=== PATIENT | female | born 1960 | race Caucasian/White ===

== ENCOUNTER 2018-04-09 17:04 | Emergency (ER) | payer OTHER ==
[2018-04-09 17:45] VITALS: BP 121/63
--- NOTE | 2018-04-09 17:51 | UC ---
Minor Trauma HPI - HPI Summary HPI Summary: injured right ribs 6 days ago has continued pain--hurts to cough - History of Current Complaint Chief Complaint: UCUpperExtremity Stated Complaint: RIGHT SIDE PAIN Time Seen by Provider: 04/09/18 17:39 Hx Obtained From: Patient ?: No Onset/Duration: Sudden Onset, Lasting Days - 6 Onset Of Pain: Immediate Pain Intensity: 4 Pain Scale Used: 0-10 Numeric Mechanism Of Injury: Direct Blow Aggravating Factor(s): Coughing, Deep Breaths, Movement Alleviating Factor(s): Nothing - Allergies/Home Medications Allergies/Adverse Reactions: Allergies Allergy/AdvReac Type Severity Reaction Status Date / Time No Known Allergies Allergy Verified 12/03/14 14:02 Home Medications: Home Medications Estradiol PATCH 0.075/DAY* [Climara PATCH 0.075 MG/DAY*] 1 patch TOPICAL WEEKLY 04/09/18 [History Confirmed 04/09/18] methylPREDNISolone ACETATE 80* [Depo-Medrol 80 MG/1ML VIAL*] 160 mg INJ MONTHLY 04/09/18 [History Confirmed 04/09/18] PMH/Surg Hx/FS Hx/Imm Hx Previously Healthy: No - Lupus - Surgical History Surgical History: Yes Surgery Procedure, Year, and Place: Hysterectomy, right shoulder surgery. - Family History Known Family History: Positive: None - Social History Occupation: Employed Full-time Lives: With Family Alcohol Use: Rare Substance Use Type: None Smoking Status (MU): Former Smoker When Did the Patient Quit Smoking/Using Tobacco: Pt stopped 15 yrs ago Review of Systems Constitutional: Negative Skin: Negative Eyes: Negative ENT: Negative Respiratory: Negative Cardiovascular: Negative Gastrointestinal: Negative Genitourinary: Negative Motor: Negative Neurovascular: Negative Musculoskeletal: Arthralgia - right rib -mid /anterior axillary line Neurological: Negative Psychological: Negative Is Patient Immunocompromised?: No All Other Systems Reviewed And Are Negative: Yes Physical Exam Triage Information Reviewed: Yes Appearance: Pain Distress - mild Vital Signs: Initial Vital Signs Temp 98.9 F 04/09/18 17:32 Pulse 56 04/09/18 17:32 Resp 14 04/09/18 17:32 BP 121/63 04/09/18 17:32 Pulse Ox 100 04/09/18 17:32 Vital Signs Reviewed: No Eye Exam: Normal Eyes: Positive: Conjunctiva Clear ENT Exam: Normal ENT: Positive: Normal ENT inspection, Hearing grossly normal. Negative: Nasal congestion, Trismus, Muffled voice, Hoarse voice Dental Exam: Normal Neck exam: Normal Neck: Positive: Supple, Nontender Respiratory Exam: Normal Respiratory: Positive: Lungs clear, Normal breath sounds, No respiratory distress, No accessory muscle use, Other: - right midaxillary anterior axillary Cardiovascular Exam: Normal Cardiovascular: Positive: RRR, No Murmur, Pulses Normal, Brisk Capillary Refill Musculoskeletal Exam: Normal Musculoskeletal: Positive: Strength Intact, ROM Intact, No Edema Neurological Exam: Normal Neurological: Positive: Alert, Muscle Tone Normal Psychological Exam: Normal Skin Exam: Normal Diagnostics - Radiology No standard instances Radiology Interpretation Completed By: Radiologist - Patient Name: RENETTA GUZMAN Medical Record#: [id number] Ordering Physician: Cheri Felton NP Acct.#: [id number] : 1960 Age: 58 Sex: F Location: [facility] Exam Date: 04/09/181749 ADM Status: REG ER Order Information: RIBS RT UNI W/PA CH MIN 3 VWS Accession Number: [id number] CPT: 14444 INDICATION: Right rib injury. COMPARISON: There are no prior studies available for comparison. TECHNIQUE: 3 views of the right ribs and dual-energy PA views of the chest were obtained. FINDINGS: No fracture or significant focal osseous abnormality is seen. The heart is within normal limits in size. The lungs are clear. There is no evidence for pneumothorax or pleural effusion. IMPRESSION: NO EVIDENCE FOR FRACTURE. <Electronically signed by Rainer Gotti MD in OV> 04/09/181827 Dictated By: Rainer Gotti MD Dictated Date/Time: 04/09/181827 Transcribed Date/Time: 04/09/181825 Copy to: CC:Cheri Felton NP; Judah Castro MD; [place] MD Imaging - [facility] Imaging [facility] [address] [address] ph [phone]) ph ([phone]) ph ([phone]) 1 of 1 Minor Trauma Course/Dx - Course Course Of Treatment: tessalon and Robitussin with codiene for cough, tylenol/ ibuprofen for pain, rib splinting and Ice prn, follow with pcp - Differential Dx/Diagnosis Provider Diagnoses: rib contusion Discharge - Sign-Out/Discharge Documenting (check all that apply): Discharge/Admit/Transfer - Discharge Plan Condition: Stable Disposition: HOME Prescriptions: Benzonatate CAP* [Tessalon 100 MG CAP*] 100 mg PO TID PRN #30 cap PRN Reason: cough guaiFENesin/CODIEN 100MG-10MG* [Robitussin AC 100Mg-10Mg*] 10 ml PO Q4H PRN # 120 ml MDD 40 PRN Reason: cough Patient Education Materials: Ibuprofen (By mouth), Ice Pack Application (ED), Rib Contusion (ED) Referrals: Matthew URIBE,Judah Ramires [Primary Care Provider] - If Needed - Billing Disposition and Condition Condition: STABLE Disposition: Home
--- NOTE | 2018-04-09 18:32 | RAD ---
INDICATION: Right rib injury. COMPARISON: There are no prior studies available for comparison. TECHNIQUE: 3 views of the right ribs and dual-energy PA views of the chest were obtained. FINDINGS: No fracture or significant focal osseous abnormality is seen. The heart is within normal limits in size. The lungs are clear. There is no evidence for pneumothorax or pleural effusion. IMPRESSION: NO EVIDENCE FOR FRACTURE.
== END 2018-04-09 18:56 | disposition home or self-care (01) ==
LOC: UCCORT 17:04
DX: S20.20XA Contusion of thorax, unspecified, initial encounter (principal); X58.XXXA Exposure to other specified factors, initial encounter; Y93.9 Activity, unspecified; Y92.9 Unspecified place or not applicable; Z87.891 Personal history of nicotine dependence
CPT/HCPCS: 99202; G0463

== ENCOUNTER 2019-03-08 18:20 | Emergency (ER) | payer OTHER ==
--- OUTSIDE RECORDS SUMMARY | 2019-03-08 18:35 | XMS REPORT | Continuity of Care Document ---
:1960 External Reference #:[id number] Author Name Judah Castro MD Address [address] [place] [address] [place] [address] Care Team Providers Name Role Phone Judah Castro MD Care Team Information [employer] Unavailable Payers Date Identification Numbers Payment Provider Subscriber Policy Number: [id number] [facility] [employer] Number: [id number] [address] PayID: [id number] [place] [address] Advance Directives Description No Information Available Problems Active Problems Provider Date Rheumatoid arthritis of multiple joints Judah Castro MD Onset: 12/19/2015 Rheumatoid arthritis Judah Castro MD Onset: 02/08/2014 Systemic lupus erythematosus Judah Castro MD Onset: 05/11/2013 Family History Date Family Member(s) Observation Comments General Diabetes, Adult General Cancer, Breast General Alcoholism General Dementia General CAD General SC General Hypertension General Stroke General Thyroid Disease Father 82 Father Diabetes, Adult Father SC Father CAD Father Hypertension Father Dementia : (age 71 Years) Mother due to Alcoholism Mother Cancer, Breast Mother Thyroid Disease Children 3 First Brother 45 First Brother Alcoholism First Sister 51 First Sister Alcoholism Second Sister 43 Second Sister Unremarkable Social History Type Date Description Comments Sex Unknown Marital Status Lives With Spouse Diet Healthy, Well Balanced Sleep Reports normal sleep activity Occupation Currently Working Hand Dominance RIGHT-handed ETOH Use Occasionally consumes wine Tobacco Use Start: Unknown End: Patient is a former smoker Unknown Exercise Type/Frequency Exercises sporadically Sun Exposure minimum amount of sun exposure Sun Exposure Uses sunscreen Seat Belt/Car Seat always uses seat belt Allergies, Adverse Reactions, Alerts Description No Known Drug Allergies Medications Active Medications SIG Qnty Indications Ordering Provider Date Famotidine take one tablet 60tabs R10.11 Judah Castro MD 02/01/2019 20mg Tablets by mouth twice a day Transderm-Scop (1.5 one behind ear 4Judah Carroll MD 01/05/2019 MG) q72 hours as 1mg/3Days Patches needed 72HR Folic Acid 1 po qd 90tabs M06.9 Unknown 1mg Tablets Azathioprine 1 by mouth Every Unknown 50mg Tablets Day Methotrexate 8 once a week. Unknown 2.5mg Tablets History Medications Ciprofloxacin HCL 1 by mouth 14tabs Judah Castro, 02/02/2019 - 500mg Tablets twice a day 02/09/2019 Scopolamine Trans[facility]mal [facility], 01/05/2019 - 1.5mg ear 4h before 01/05/2019 Patch motion then q3days as needed Scopolamine use one patch 4unJudah Andrews, 01/05/2019 - 1mg/3Days Patches as directed 01/05/2019 72HR every 3 days Amoxicillin/Clavulanate 1 by mouth 20tabs J01.00 Judah Castro, 2017 - Potassium twice a day 11/05/2018 875-125mg Tablets with food Amoxicillin/Clavulanate 1 tab twice a 20tabs J01.00 Judah Castro, 2017 - Potassium day for 10 days 02/26/2018 875-125mg Tablets Cephalexin 1 tab twice a 14tabs N39.0 Judah Castro, 07/24/2016 - 500mg Tablets day x 7 days 07/31/2016 Metoprolol Succinate ER 1 by mouth Britta Pemberton MD 09/25/2015 - 25mg every day 12/26/2015 Tablets ER 24HR 09/25/15 Start 1/2 qd Azithromycin 2 by mouth 6tabs J01.90 Judah Castro, 09/13/2015 - 250mg Tablets today, then 1qd 09/18/2015 for 4 more days Benzonatate 1-2 tabs three 30caps 461.0 Judah Castro, 11/03/2014 - 100mg Capsules times a day as 11/13/2014 needed cough Ceftin 1 tab twice a 20tabs 461.0 Judah Castro, 11/03/2014 - 500mg Tablets day for 10 days OK 11/13/2014 Valacyclovir HCL 1 by mouth tidx 15tabs 053.9 Judah Castro, 05/11/2013 - 500mg Tablets 5 days MD 02/08/2014 Hydroxychloroquine 1 po bid 180tabs Judah Castro, 05/11/2013 - Sulfate MD 02/08/2014 200mg Tablets Keflex 1 tab bid for 7 14caps 599.0 Judah Castro, 11/06/2012 - 500mg Capsules days MD 11/13/2012 Naprosyn one po bid with 60tabs 724.2 Judah Castro, 09/15/2012 - 500mg Tablets food OK 02/08/2014 Flexeril 1 po q 8 hours 30tabs 724.2 Judah Castro, 09/15/2012 - 10mg Tablets prn pain MD 02/08/2014 Cipro 1 tab bid for 5 10tabs 595.0 Judah Castro, 09/10/2012 - 500mg Tablets days OK 09/15/2012 Pyridium 1 tab q 8 hours 30tabs 595.0 Judah Castro, 09/10/2012 - 100mg Tablets prn dysuria 09/15/2012 Aspirin Ec qd with meal V70.0 Judah Castro, 11/27/2011 - 81mg Tablets DR URIBE 12/26/2015 Cl[place]ara Unknown - 0.075mg/24HR Patches 12/26/2015 Weekly Prednisone 5 Tabs bid Unknown - 1mg Tablets 02/08/2014 Methotrexate 4 tabs q week M06.9 Unknown - 2.5mg Tablets 12/26/2015 Vitamin D3 Unknown - 5000Unit Chewtabs 12/26/2015 Metoprolol Succinate ER 1 by mouth Britta Pemberton MD - 25mg every day 09/25/2015 Tablets ER 24HR Prednisone 1 by mouth Unknown - 5mg Tablets every day 02/16/2018 Immunizations CPT Code Status Date Vaccine Lot # [id number] Given 11/27/2004 Tdap (Adacel) Ages 7 And Above Only Vital Signs Date Vital Result Comment 02/24/2019 3:20pm Body Temperature 98.6 F Weight 113.50 lb Heart Rate 54 /min BP Systolic 98 mmHg BP Diastolic 64 mmHg Respiratory Rate 18 /min O2 % BldC Oximetry 99 % 02/01/2019 2:21pm Body Temperature 99.9 F Weight 117.31 lb Heart Rate 72 /min BP Systolic 134 mmHg BP Diastolic 80 mmHg Respiratory Rate 16 /min 01/05/2019 2:52pm Body Temperature 98.4 F Weight 116.00 lb Heart Rate 51 /min BP Systolic 152 mmHg BP Diastolic 76 mmHg Respiratory Rate 20 /min Height 61.75 inches 5'1.75" O2 % BldC Oximetry 99 % BMI (Body Mass Index) 21.4 kg/m2 10/26/2018 10:41am Body Temperature 98.0 F Weight 118.00 lb Heart Rate 68 /min BP Systolic 126 mmHg BP Diastolic 72 mmHg Respiratory Rate 18 /min O2 % BldC Oximetry 98 % 02/16/2018 2:13pm Body Temperature 97.9 F Weight 119.12 lb Heart Rate 53 /min BP Systolic 122 mmHg BP Diastolic 70 mmHg Respiratory Rate 16 /min O2 % BldC Oximetry 99 % 07/24/2016 1:10pm Body Temperature 98.9 F Weight 127.00 lb Heart Rate 63 /min BP Systolic 126 mmHg BP Diastolic 72 mmHg Respiratory Rate 16 /min O2 % BldC Oximetry 98 % 12/19/2015 2:09pm Body Temperature 96.4 F Weight 125.00 lb Heart Rate 51 /min BP Systolic 118 mmHg BP Diastolic 78 mmHg Respiratory Rate 16 /min 09/25/2015 3:20pm Body Temperature 98.3 F Weight 127.00 lb Heart Rate 64 /min BP Systolic 124 mmHg BP Diastolic 86 mmHg Respiratory Rate 16 /min 09/13/2015 1:04pm Body Temperature 98.4 F Weight 122.00 lb Heart Rate 64 /min BP Systolic 138 mmHg BP Diastolic 82 mmHg Respiratory Rate 16 /min O2 % BldC Oximetry 98 % 04/20/2015 2:54pm Body Temperature 98.0 F Weight 123.00 lb Heart Rate 60 /min BP Systolic 108 mmHg BP Diastolic 70 mmHg Respiratory Rate 16 /min O2 % BldC Oximetry 99 % 11/03/2014 3:28pm Body Temperature 99.7 F Weight 123.00 lb Heart Rate 64 /min BP Systolic 120 mmHg BP Diastolic 72 mmHg Respiratory Rate 20 /min O2 % BldC Oximetry 99 % 02/08/2014 3:39pm Body Temperature 97.5 F Weight 126.00 lb Heart Rate 62 /min BP Systolic 130 mmHg BP Diastolic 80 mmHg Respiratory Rate 16 /min Height 62 inches 5'2" BMI (Body Mass Index) 23.0 kg/m2 05/11/2013 1:54pm Body Temperature 96.1 F Weight 118.00 lb Heart Rate 76 /min BP Systolic 120 mmHg BP Diastolic 70 mmHg Respiratory Rate 16 /min 02/23/2013 4:07pm Body Temperature 98.3 F Weight 128.00 lb Heart Rate 76 /min BP Systolic 126 mmHg BP Diastolic 82 mmHg Respiratory Rate 16 /min 11/06/2012 2:26pm Body Temperature 97.9 F Weight 129.00 lb Heart Rate 68 /min BP Systolic 128 mmHg BP Diastolic 74 mmHg Respiratory Rate 16 /min 09/15/2012 1:20pm Body Temperature 96.0 F Weight 129.00 lb Heart Rate 72 /min BP Systolic 110 mmHg BP Diastolic 70 mmHg Respiratory Rate 16 /min 09/10/2012 3:29pm Body Temperature 98.4 F Weight 129.00 lb Heart Rate 74 /min BP Systolic 116 mmHg BP Diastolic 70 mmHg Respiratory Rate 16 /min 11/27/2011 10:55am Body Temperature 97.9 F Weight 130.00 lb Heart Rate 80 /min BP Systolic 128 mmHg BP Diastolic 82 mmHg Respiratory Rate 16 /min Height 62 inches 5'2" BMI (Body Mass Index) 23.8 kg/m2 Right Visual Acuity Distance 20/20 Left Visual Acuity Distance 20/20 Results Test Date Facility Test Result H/L Range Note Laboratory test 02/24/2019 [facility] Microbiology res 1 finding <SEE NOTE> CBC with Auto 02/24/2019 [facility] WBC 4.5 K/uL 4.1-11.0 Diff-fcmg RBC 4.20 M/uL 4.00-5.40 Hemoglobin 13.1 gm/dL 12.0-16.0 Hematocrit 39.0 % 36.0-47.0 MCV 92.8 fL 80.0-97.0 MCH 31.2 pg 27.0-32.0 MCHC 33.7 g/dL 32.0-36.0 RDW 13.7 % 11.5-14.5 PLT Count 244 K/ul 140-400 MPV 8.5 FL 7.1-10.7 Neutrophil 72.2 % 35.0-75.0 Lymphocyte 20.6 % 16.0-52.0 Monocyte 5.8 % 2.0-10.0 Eosinophil 0.7 % 0.0-5.0 Basophil 0.7 % 0.0-4.0 Abs Neutrophils 3.2 K/uL 2.1-8.0 Abs Lymphocytes 0.9 K/uL 0.8-5.5 Abs Monocytes 0.3 K/uL 0.1-1.0 Abs Eosinophils 0.0 K/uL 0.0-0.5 Abs Basophils 0.0 K/uL 0.0-0.3 Comprehensive Met Panel-FCMG 02/24/2019 [facility] Sodium 137 mmol/L 135- 146 2 Potassium 4.3 mmol/L 3.5-5.2 Chloride# 99 mmol/L 97-110 3 Carbon Dioxide 31 mmol/L 24-34 Calcium (Copy 2747) 9.4 mg/dL 8.5-10.5 4 Glucose 79 mg/dL 70-105 BUN 13 mg/dL 6-26 Creatinine 0.7 mg/dL 0.5-1.4 Total Protein 6.9 g/dL 6.0-8.0 Albumin 4.3 g/dL 3.6-4.9 Globulin 2.6 g/dL 2.0-3.5 A/G Ratio 1.7 Ratio 1.0-2.2 Total Bilirubin 0.6 mg/dL 0.1-1.3 Alkaline Phosphatase 66 U/L 24-140 Alt 55 U/L High 3-42 Ast 43 U/L High 8-42 Anion Gap 7 mmol/L 5-15 5 Female Egfr 91 >60 6 Male Egfr 101 >60 7 Laboratory test 02/02/2019 [facility]rine Culture Microbiology res Abnormal 8 finding <SEE NOTE> Laboratory test 01/11/2019 [facility] CRP 0.2 finding (Inflammation )-fcmg Creatinine/GFR 01/11/2019 [facility] Creatinine, 0.8 Serum-fcmg Laboratory test 01/11/2019 [facility] Ast (Sgot) 23 finding Liver Enzyme Alt (SGPT) Liver Enzyme 31 Albumin 3.9 Esr-Sedimentation Rate-fcmg 8 CBC With Auto Diff 01/11/2019 [facility] White Blood Count 3.9 Z#Red Blood Count 4.31 Hemoglobin 13.6 Hematocrit 40.1 Z#MCV (Corpuscular Volume) 93.0 Z#MCH (Corpuscular Hemoglobin) 31.5 Z#CHC (Corpuscular Hemog Conc) 33.9 Z#RDW 11.6 Platelet Count 252 Basic (BMP) 01/05/2019 [facility] Sodium 137 mmol/L 135-146 9, 10 Potassium 4.2 mmol/L 3.5-5.2 Chloride# 102 mmol/L 97-110 11 Carbon Dioxide 26 mmol/L 24-34 Glucose 102 mg/dL 70-105 BUN 12 mg/dL 6-26 Creatinine 0.7 mg/dL 0.5-1.4 Calcium 9.1 mg/dL 8.5-10.2 Non Sagrario Egfr >60 >60 12 Sagr[place] Egfr >60 >60 13 Anion Gap 9 mmol/L 5-15 14 Laboratory test finding 01/05/2019 [facility] Magnesium 2.1 mg/dL 1.5-2.7 Vitamin B12 686 pg/mL 180-914 Laboratory test finding 04/15/2018 [facility] CRP (C-Reactive <0.2 Protein)-fcmg Creatinine, Serum-fcmg 0.8 Ast (Sgot) Liver Enzyme 26 Alt (SGPT) Liver Enzyme 38 Albumin 4.1 Esr-Sedimentation Rate-fcmg 7 CBC With Auto Diff 04/15/2018 [facility] White Blood Count-RL 4.3 Z#Red Blood Count 4.37 Hemoglobin 13.5 Hematocrit 42.4 Z#MCV (Corpuscular Volume) 97.0 Z#MCH (Corpuscular Hemoglobin) 30.9 Z#CHC (Corpuscular Hemog Conc) 31.9 Z#RDW 13.7 Platelet Count 226 Laboratory test finding 11/17/2017 [facility] CRP (C-Reactive Protein) < 0.2 Creatinine, Serum 1.0 Ast (Sgot) Liver Enzyme 23 Alt (SGPT) Liver Enzyme 33 Albumin 3.9 Esr-Sedimentation Rate 6 CBC With Auto Diff 11/17/2017 [facility] White Blood Count-RL 4.0 Z#Red Blood Count 4.13 Hemoglobin 12.9 Hematocrit 40.6 Z#MCV (Corpuscular Volume) 98.3 Z#MCH (Corpuscular Hemoglobin) 31.3 Z#CHC (Corpuscular Hemog Conc) 31.8 Z#RDW 12.4 Platelet Count 216 Laboratory test finding 07/14/2017 [facility] CRP (C-Reactive Protein) < 0.2 Creatinine, Serum 1.0 Ast (Sgot) Liver Enzyme 29 Alt (SGPT) Liver Enzyme 34 Esr-Sedimentation Rate 1.4 CBC With Auto Diff 07/14/2017 [facility] White Blood Count-RL 3.9 Z#Red Blood Count 3.98 Hemoglobin 11.9 Hematocrit 38.3 Z#MCV (Corpuscular Volume) 96.3 Z#MCH (Corpuscular Hemoglobin) 29.8 Z#CHC (Corpuscular Hemog Conc) 31.0 Z#RDW 12.2 Platelet Count 195 Laboratory test finding 04/22/2017 [facility] Creatinine, Serum 1.0 Ast (Sgot) Liver Enzyme 28 Alt (SGPT) Liver Enzyme 39 Albumin 4.1 Esr-Sedimentation Rate 26 CBC With Auto Diff 04/22/2017 [facility] White Blood Count-RL 3.5 Z#Red Blood Count 4.28 Hemoglobin 13.2 Hematocrit 41.7 Z#MCV (Corpuscular Volume) 97.3 Z#MCH (Corpuscular Hemoglobin) 30.9 Z#CHC (Corpuscular Hemog Conc) 31.8 Z#RDW 12.9 Platelet Count 246 Laboratory test finding 12/04/2016 [facility] CRP (C-Reactive Protein) < 0.2 Creatinine, Serum 1.0 BUN, Urea Nitrogen 11 Ast (Sgot) Liver Enzyme 18 Alt (SGPT) Liver Enzyme 28 Esr-Sedimentation Rate 5 CBC With Auto Diff 12/04/2016 [facility] White Blood Count-RL 3.9 Z#Red Blood Count 4.21 Hemoglobin 13.1 Hematocrit 40.5 Z#MCV (Corpuscular Volume) 96.2 Z#MCH (Corpuscular Hemoglobin) 31.1 Z#CHC (Corpuscular Hemog Conc) 32.3 Z#RDW 12.6 Platelet Count 241 CBC With Auto Diff 08/23/2016 [facility] White Blood Count-RL 3.5 Z#Red Blood Count 4.11 Hemoglobin 12.4 Hematocrit 38.8 Z#MCV (Corpuscular Volume) 94.3 Z#MCH (Corpuscular Hemoglobin) 30.2 Z#CHC (Corpuscular Hemog Conc) 32.0 Z#RDW 11.8 Platelet Count 212 Laboratory test finding 08/23/2016 [facility] CRP (C-Reactive Protein) < 0.2 Creatinine, Serum 1.0 Ast (Sgot) Liver Enzyme 19 Alt (SGPT) Liver Enzyme 19 Albumin 3.7 Esr-Sedimentation Rate 17 Laboratory test 07/24/2016 [facility] Microbiology res Abnormal 15 finding <SEE NOTE> Laboratory test 07/18/2016 [facility] Ast (Sgot) 18 finding Liver Enzyme Alt (SGPT) Liver Enzyme 21 Esr-Sedimentation Rate 15 CRP (C-Reactive Protein) 0.2 Creatinine/GFR 07/18/2016 [facility] Creatinine, Serum 1.0 CBC With Auto Diff 07/18/2016 [facility] White Blood Count-RL 4.3 Z#Red Blood Count 4.13 Hemoglobin 12.4 Hematocrit 38.4 Z#MCV (Corpuscular Volume) 93.1 Z#MCH (Corpuscular Hemoglobin) 30.1 Z#CHC (Corpuscular Hemog Conc) 32.4 Z#RDW 11.1 Platelet Count 185 Z#MPV 6.8 Laboratory test finding 03/21/2016 [facility] T4 Free Thyroxine 0.85 TSH 1.690 BMP (Basic) 03/21/2016 [facility] Calcium 8.4 Creatinine, Serum 0.97 Sodium 138 Co2 Carbon Dioxide 30 Glucose 76 Chloride 102 Potassium 4.7 BUN, Urea Nitrogen 14 Laboratory test finding 01/12/2016 [facility] CRP (C-Reactive Protein) < 0.2 Creatinine, Serum 0.9 Ast (Sgot) Liver Enzyme 21 Alt (SGPT) Liver Enzyme 23 Albumin 3.8 Esr-Sedimentation Rate 18 CBC With Auto Diff 01/12/2016 [facility] White Blood Count-RL 5.1 Z#Red Blood Count 4.51 Hemoglobin 13.1 Hematocrit 41.9 Platelet Count 223 Hepatic Panel (LFT) 10/30/2015 [facility] Total Protein 6.8 g/dL 6.0-8.0 16 Albumin 4.1 g/dL 3.6-4.9 Total Bilirubin 0.7 mg/dL 0.1-1.3 Direct Bilirubin 0.1 mg/dL 0.0-0.4 Alkaline Phosphatase 49 U/L 24-140 Alt 22 U/L 3-42 Ast 28 U/L 8-42 Hepatic Panel (LFT) 10/09/2015 [facility] Total Protein 6.8 g/dL 6.0-8.0 Albumin 4.1 g/dL 3.6-4.9 Total Bilirubin 0.7 mg/dL 0.1-1.3 Direct Bilirubin 0.1 mg/dL 0.0-0.4 Alkaline Phosphatase 59 U/L 24-140 Alt 107 U/L High 3-42 Ast 67 U/L High 8-42 Laboratory test finding 09/25/2015 [facility] Magnesium 2.1 mg/dL 1.5-2.7 17 Phosphorus 3.5 mg/dL 2.5-5.0 Free T4 0.95 ng/dL 0.70-1.48 TSH 4.36 uIU/mL 0.35-4.94 Comprehensive Metabolic (CMP) 09/25/2015 [facility] Sodium 136 mmol/L 134- 142 Potassium 4.4 mmol/L 3.5-5.2 Chloride 101 mmol/L 97-109 Carbon Dioxide 30 mmol/L 24-34 Glucose 89 mg/dL 70-105 BUN 14 mg/dL 6-26 Creatinine 1.0 mg/dL 0.5-1.4 Calcium 9.0 mg/dL 8.5-10.2 Total Protein 6.8 g/dL 6.0-8.0 Albumin 4.1 g/dL 3.6-4.9 Globulin 2.7 g/dL 2.0-3.5 A/G Ratio 1.5 Ratio 1.0-2.2 Total Bilirubin 0.4 mg/dL 0.1-1.3 Alkaline Phosphatase 59 U/L 24-140 Alt 58 U/L High 3-42 Ast 40 U/L 8-42 Anion Gap 9 mmol/L 6-14 Sagr[place] Egfr >60 >60 18 Non Sagrario Egfr 57 Low >60 19 CBC With Auto Diff 09/25/2015 [facility] WBC 3.8 K/uL Low 4.1-11.0 RBC 3.95 M/uL Low 4.00-5.40 Hemoglobin 13.0 gm/dL 12.0-16.0 Hematocrit 38.2 % 36.0-47.0 MCV 96.8 fL 80.0-97.0 MCH 32.8 pg High 27.0-32.0 MCHC 33.9 g/dL 32.0-36.0 RDW 13.4 % 11.5-14.5 PLT Count 175 K/ul 140-400 Neutrophil 66.1 % 35.0-75.0 Lymphocyte 20.6 % 16.0-52.0 Monocyte 12.0 % High 2.0-10.0 Eosinophil 0.6 % 0.0-5.0 Basophil 0.7 % 0.0-4.0 Abs Neutrophils 2.5 K/uL 2.1-8.0 Abs Lymphocytes 0.8 K/uL 0.8-5.5 Abmon 0.5 K/uL 0.1-1.0 Abs Eosinophils 0.0 K/uL 0.0-0.5 Abs Basophils 0.0 K/uL 0.0-0.3 Laboratory test 07/17/2015 [facility] Microbiology res <SEE 20 finding NOTE> CMP, Comp Metabolic 06/14/2015 [facility] Albumin 4.4 Panel Alt (SGPT) Liver Enzyme 43 Calcium 8.7 Co2 Carbon Dioxide 26 Chloride 102 Creatinine, Serum 0.89 Glucose 79 Alkaline Phosphatase 78 Potassium 4.1 Sodium 140 Ast (Sgot) Liver Enzyme 33 BUN, Urea Nitrogen 11 Total Protein 6.8 Bilirubin,Total 0.7 A/G Ratio 1.8 Globulin-RL 2.4 Laboratory test finding 06/14/2015 [facility] LDL Chol (Calc) 84 Laboratory test finding 06/14/2015 [facility] TSH 2.73 CBC With Auto Diff 06/14/2015 [facility] White Blood Count-RL 2.8 Hemoglobin 12.9 Hematocrit 38.7 Platelet Count 179 Lipid Panel 06/14/2015 [facility] Cholesterol Total 163 HDL Cholesterol- 67 Triglycerides 62 CBC With Auto Diff 05/31/2015 [facility] White Blood Count-RL 3.6 Hemoglobin 12.4 Hematocrit 38.1 Platelet Count 212 Laboratory test finding 05/31/2015 [facility] CRP (C-Reactive Protein) < 0.2 Esr-Sedimentation Rate 12 Laboratory test finding 05/31/2015 [facility] Albumin 3.9 Alkaline Phosphatase 67 Alt (SGPT) Liver Enzyme 35 Ast (Sgot) Liver Enzyme 22 Creatinine, Serum 1.0 Laboratory test finding 12/28/2014 [facility] Alkaline Phosphatase 82 Albumin 3.9 Ast (Sgot) Liver Enzyme 29 Alt (SGPT) Liver Enzyme 40 CRP (C-Reactive Protein) <0.2 Esr-Sedimentation Rate 24 CBC With Auto Diff 12/28/2014 [facility] White Blood Count-RL 3.4 Z#Red Blood Count 3.91 Hemoglobin 12.0 Hematocrit 34.9 Z#MCV (Corpuscular Volume) 89 Z#MCH (Corpuscular Hemoglobin) 30.7 Z#CHC (Corpuscular Hemog Conc) 34.4 Z#RDW 11.9 Platelet Count 174 Laboratory test finding 02/08/2014 [facility] CPK 42 U/L 12-199 21 TSH 3.65 uIU/mL 0.34-5.60 Free T4 0.64 ng/dL 0.50-1.60 Iron Panel 02/08/2014 [facility] Iron, Total 51 g/dL 50-170 Transferrin 190.3 mg/dL Low 203.0-362.0 Tibc (calc) 266 g/dL 261-478 % Iron Saturation 19.1 % 13.0-45.0 Laboratory test finding 02/08/2014 [facility] Folate >25.2 ng/ml High 5.9- 24.8 Vitamin B12 1085 pg/mL High 180-914 Laboratory test finding 02/08/2014 [facility] Lyme Igm/Igg AB NEGATIVE (Neg ) 22 Laboratory test finding 02/23/2013 [facility] Esr 47 mm/hr High 0-20 23 Comprehensive Metabolic 02/23/2013 [facility] Sodium 135 mmol/L 134-142 (CMP) Potassium 4.2 mmol/L 3.5-5.2 Chloride 100 mmol/L 97-109 Carbon Dioxide 30 mmol/L 24-34 Glucose 75 mg/dL 70-105 BUN 16 mg/dL 6-26 Creatinine 1.0 mg/dL 0.5-1.4 Calcium 8.9 mg/dL 8.5-10.2 Total Protein 7.4 g/dL 6.0-8.0 Albumin 4.3 g/dL 3.6-4.9 Globulin 3.1 g/dL 2.0-3.5 A/G Ratio 1.4 Ratio 1.0-2.2 Total Bilirubin 0.4 mg/dL 0.1-1.3 Alkaline Phosphatase 53 U/L 24-140 Alt 12 U/L 3-42 Ast 16 U/L 8-42 Anion Gap 9 mmol/L 6-14 [facility] Egfr >60 >60 24 Non Sagrario Egfr >60 >60 25 CBC With Auto Diff 02/23/2013 [facility] WBC 4.5 K/uL 4.1-11.0 RBC 4.05 M/uL 4.00-5.40 Hemoglobin 12.7 gm/dL 12.0-16.0 Hematocrit 37.4 % 36.0-47.0 MCV 92.2 fL 80.0-97.0 MCH 31.4 pg 27.0-32.0 MCHC 34.1 g/dL 32.0-36.0 RDW 12.7 % 11.5-14.5 PLT Count 189 K/ul 140-400 Neutrophil 63.8 % 35.0-75.0 Lymphocyte 23.1 % 16.0-52.0 Monocyte 11.2 % High 2.0-10.0 Eosinophil 1.2 % 0.0-5.0 Basophil 0.7 % 0.0-4.0 Abs Neutrophils 2.9 K/uL 2.1-8.0 Abs Lymphocytes 1.0 K/uL 0.8-5.5 Abs Monocytes 0.5 K/uL 0.1-1.0 Abs Eosinophils 0.1 K/uL 0.0-0.5 Abs Basophils 0.0 K/uL 0.0-0.3 Laboratory test 11/06/2012 [facility] Microbiology res 26 finding <SEE NOTE> Comprehensive 11/06/2012 [facility] Sodium 135 mmol/L 134-142 Metabolic (CMP) Potassium 4.8 mmol/L 3.5-5.2 Chloride 99 mmol/L 97-109 Carbon Dioxide 33 mmol/L 24-34 Glucose 80 mg/dL 70-105 BUN 10 mg/dL 6-26 Creatinine 1.0 mg/dL 0.5-1.4 Calcium 9.3 mg/dL 8.5-10.2 Total Protein 7.5 g/dL 6.0-8.0 Albumin 4.5 g/dL 3.6-4.9 Globulin 3.0 g/dL 2.0-3.5 A/G Ratio 1.5 Ratio 1.0-2.2 Total Bilirubin 0.5 mg/dL 0.1-1.3 Alkaline Phosphatase 56 U/L 24-140 Alt 10 U/L 3-42 Ast 15 U/L 8-42 Anion Gap 8 mmol/L 6-14 [facility] Egfr >60 >60 27 Non [facility] Egfr 59 Low >60 28 Laboratory test 09/10/2012 [facility] Microbiology res Abnormal 29 finding <SEE NOTE> Lipid 11/27/2011 [facility] Cholesterol 160 mg/dL 50-199 30 Triglycerides 46 mg/dL 10-150 HDL 56 mg/dL 23-92 31 Chol/ HDL Ratio 2.9 ratio Low 3.7-5.6 VLDL 9 mg/dL 2-29 LDL (Calc) 95 mg/dL 20-129 32 Comprehensive Metabolic (CMP) 11/27/2011 [facility] Sodium 138 mmol/L 135- 144 Potassium 4.3 mmol/L 3.5-5.1 Chloride 102 mmol/L 97-107 Carbon Dioxide 34 mmol/L High 23-33 Glucose 84 mg/dL 70-105 BUN 13 mg/dL 7-25 Creatinine 0.9 mg/dL 0.6-1.2 Calcium 9.0 mg/dL 8.6-10.3 BUN/CR 14 ratio 12-20 Total Protein 6.8 g/dL 6.0-8.5 Albumin 4.4 g/dL 3.5-5.7 Globulin 2.4 g/dL 2.0-3.5 A/G Ratio 1.8 Ratio 1.0-2.2 Total Bilirubin 0.5 mg/dL 0.3-1.3 Alkaline Phosphatase 61 U/L 34-104 Alt 33 U/L 7-52 Ast 18 U/L 13-39 Anion Gap 6 mmol/L Low 8-16 Non [facility]rario Egfr >60 >60 33 [place] Egfr >60 >60 34 CBC With Auto Diff 11/27/2011 [facility] WBC 3.4 K/uL Low 4.1-11.0 RBC 3.90 M/uL Low 4.00-5.40 Hemoglobin 12.6 gm/dL 12.0-16.0 Hematocrit 35.8 % Low 36.0-47.0 MCV 91.8 fL 80.0-97.0 MCH 32.3 pg High 27.0-32.0 MCHC 35.2 g/dL 32.0-36.0 RDW 12.6 % 11.5-14.5 PLT Count 170 K/ul 140-400 Neutrophil 61.8 % 35.0-75.0 Lymphocyte 27.4 % 16.0-52.0 Monocyte 9.4 % 2.0-10.0 Eosinophil 0.9 % 0.0-5.0 Basophil 0.5 % 0.0-4.0 Abs Neutrophils 2.1 K/uL 2.1-8.0 Abs Lymphocytes 0.9 K/uL 0.8-5.5 Abs Monocytes 0.3 K/uL 0.1-1.0 Abs Eosinophils 0.0 K/uL 0.0-0.5 Abs Basophils 0.0 K/uL 0.0-0.3 Laboratory test finding 11/27/2011 [facility] TSH 2.05 uIU/mL 0.34-5.60 Vit D,25 Hydroxy 59 ng/mL 31-100 1 Microbiology results [facility] Clean Catch Midstream FINAL RESULT No growth 2 Updated reference range on new analyzer 3 Updated reference range on new analyzer 4 Updated reference range 02-24-2019 5 Updated Reference Range 6 Concerning GFR Guidelines for Americans: Normal function or mild renal disease, if clinically at risk: >/=60 mL/min Moderately decreased: 30-59 Severely decreased: 15-29 Renal failure: <15 There is reduced accuracy above 60ml/min/1.73 m squared, but the numeric value may be clinically useful in the near 60 range 7 Concerning GFR Guidelines: Normal function or mild renal disease, if clinically at risk: >/=60 mL/min Moderately decreased: 30-59 Severely decreased: 15-29 Renal failure: <15 There is reduced accuracy above 60ml/min/1.73 m squared, but the numeric value may be clinically useful in the near 60 range Glomerular Filtration Rate (GFR) is estimated based on the CKD-EPI equation, which assumes a steady state for creatinine as recommended by the National Kidney Disease Education Program in conjunction with the National Institutes of Health and the National Kidney Foundation. Clinical conditions in which it may be necessary to measure GFR by using clearance methods include extremes of age and body size, severe malnutrition or obesity, diseases of skeletal muscle, paraplegia or quadriplegia, vegetarian diet, rapidly changing kidney function, and calculation of the dose of potentially toxic drugs that are excreted by the kidneys. 8 Microbiology results SOURCE Clean Catch Midstream COLONY COUNT >100,000 CFU/ML PRELIMINARY RESULT Gram Negative Tristan. ID & Sensitivity to Follow. 02/03/2019 2:14 PM FINAL RESULT Escherichia coli (Isolate 1) Sensitivity Analysis Isolate 1 --------- AMIKACIN <=16 S AMOXICILLIN/CLAVULANATE <=8/4 S AMPICILLIN >16 R AMPICILLIN/SULBACTAM 16/8 I CEFAZOLIN <=2 S CEFEPIME <=8 S CEFOTAXIME <=2 S CEFTRIAXONE <=1 S CEFUROXIME <=4 S CIPROFLOXACIN <=1 S ERTAPENEM <=0.5 S GENTAMYCIN <=2 S IMIPENEM <=1 S LEVOFLOXACIN <=2 S NITROFURANTOIN <=32 S PIPERACILLIN/TAZOBACTAM <=16 S TETRACYCLINE <=4 S TOBRAMYCIN <=4 S TRIMETHOPRIM/SULFAMETHOXAZ <=2/38 S S=Sensitive;I=Indeterminate;R=Resistant 9 This sample is drawn by: VANESSA VILLANUEVA LPN 10 Updated reference range on new analyzer 11 Updated reference range on new analyzer 12 Concerning GFR Guidelines: Normal function or mild renal disease, if clinically at risk: >/=60 mL/min Moderately decreased: 30-59 Severely decreased: 15-29 Renal failure: <15 Glomerular Filtration Rate (GFR) is estimated based on the MDRD equation, which assumes a steady state for creatinine as recommended by the National Kid[employer] Disease Education Program in conjunction with the National Institutes of Health and the National Kidney Foundation. Clinical conditions in which it may be necessary to measure GFR by using clearance methods include extremes of age and body size, severe malnutrition or obesity, diseases of skeletal muscle, paraplegia or quadriplegia, vegetarian diet, rapidly changing kidney function, and calculation of the dose of potentially toxic drugs that are excreted by the kidneys. 13 Concerning GFR Guidelines for Americans: Normal function or mild renal disease, if clinically at risk: >/=60 mL/min Moderately decreased: 30-59 Severely decreased: 15-29 Renal failure: <15 14 Updated Reference Range 15 Microbiology results SOURCE URINE COLONY COUNT >100,000 CFU/ML PRELIMINARY RESULT Gram Negative Tristan. ID & Sensitivity to Follow. FINAL RESULT Escherichia coli (Isolate 1) Sensitivity Analysis Isolate 1 --------- AMIKACIN <=16 S AMPICILLIN <=8 S AMPICILLIN/SULBACTAM <=8/4 S AZTREONAM <=4 S CEFAZOLIN <=2 S CEFEPIME <=8 S CEFTAZIDIME <=1 S CEFTRIAXONE <=1 S CIPROFLOXACIN <=1 S ERTAPENEM <=0.5 S GENTAMYCIN <=2 S IMIPENEM <=1 S LEVOFLOXACIN <=2 S NITROFURANTOIN <=32 S PIPERACILLIN/TAZOBACTAM <=16 S TETRACYCLINE <=4 S TOBRAMYCIN <=4 S TRIMETHOPRIM/SULFAMETHOXAZ <=2/38 S S=Sensitive;I=Indeterminate;R=Resistant 16 This sample is drawn by:Sandy SOLITARIO LPN. 17 This sample is drawn by:JUAN JOSE BLUE MA 18 Concerning GFR Guidelines for Americans: Normal function or mild renal disease, if clinically at risk: >/=60 mL/min Moderately decreased: 30-59 Severely decreased: 15-29 Renal failure: <15 19 Concerning GFR Guidelines: Normal function or mild renal disease, if clinically at risk: >/=60 mL/min Moderately decreased: 30-59 Severely decreased: 15-29 Renal failure: <15 Glomerular Filtration Rate (GFR) is estimated based on the MDRD equation, which assumes a steady state for creatinine as recommended by the National Kidney Disease Education Program in conjunction with the National Institutes of Health and the National Kidney Foundation. Clinical conditions in which it may be necessary to measure GFR by using clearance methods include extremes of age and body size, severe malnutrition or obesity, diseases of skeletal muscle, paraplegia or quadriplegia, vegetarian diet, rapidly changing kidney function, and calculation of the dose of potentially toxic drugs that are excreted by the kidneys. 20 Microbiology results SOURCE URINE FINAL RESULT No growth 21 This sample is drawn by:CHANCE COLON LPN 22 NEW CHEMILUMINESCENT IMMUNOASSAY METHOD IN USE 09/15/12 PROVIDES ENHANCED SPECIFICITY THROUGH USE OF RECOMBINANT VLsE ANTIGEN. A Negative serologic test for Lyme Disease indicates no serologic evidence of infection with B burgdorferi at the time this specimen was collected. A repeat specimen should be collected in 2 to 4 weeks if clinically indicated. Unless otherwise specified, testing performed by [facility], [address] [address] 23 This sample is drawn by: JOE REILLY LPN 24 Concerning GFR Guidelines for Americans: Normal function or mild renal disease, if clinically at risk: >/=60 mL/min Moderately decreased: 30-59 Severely decreased: 15-29 Renal failure: <15 25 Concerning GFR Guidelines: Normal function or mild renal disease, if clinically at risk: >/=60 mL/min Moderately decreased: 30-59 Severely decreased: 15-29 Renal failure: <15 Glomerular Filtration Rate (GFR) is estimated based on the MDRD equation, which assumes a steady state for creatinine as recommended by the National Kidney Disease Education Program in conjunction with the National Institutes of Health and the National Kidney Foundation. Clinical conditions in which it may be necessary to measure GFR by using clearance methods include extremes of age and body size, severe malnutrition or obesity, diseases of skeletal muscle, paraplegia or quadriplegia, vegetarian diet, rapidly changing kidney function, and calculation of the dose of potentially toxic drugs that are excreted by the kidneys. 26 Microbiology results SOURCE URINE FINAL RESULT No Growth 27 Concerning GFR Guidelines for Americans: Normal function or mild renal disease, if clinically at risk: >/=60 mL/min Moderately decreased: 30-59 Severely decreased: 15-29 Renal failure: <15 28 Concerning GFR Guidelines: Normal function or mild renal disease, if clinically at risk: >/=60 mL/min Moderately decreased: 30-59 Severely decreased: 15-29 Renal failure: <15 Glomerular Filtration Rate (GFR) is estimated based on the MDRD equation, which assumes a steady state for creatinine as recommended by the National Kidney Disease Education Program in conjunction with the National Institutes of Health and the National Kidney Foundation. Clinical conditions in which it may be necessary to measure GFR by using clearance methods include extremes of age and body size, severe malnutrition or obesity, diseases of skeletal muscle, paraplegia or quadriplegia, vegetarian diet, rapidly changing kidney function, and calculation of the dose of potentially toxic drugs that are excreted by the kidneys. 29 Microbiology results SOURCE URINE COLONY COUNT >100,000 CFU/ML PRELIMINARY RESULT Gram Negative Tristan. ID & Sensitivity to Follow. FINAL RESULT Escherichia coli (Isolate 1) Sensitivity Analysis Isolate 1 --------- AMPICILLIN <=2 S AMPICILLIN/SULBACTAM <=2 S CEFAZOLIN <=4 S CEFTRIAXONE <=1 S CIPROFLOXACIN <=0.25 S NITROFURANTOIN <=16 S TRIMETHOPRIM/SULFAMETHOXAZ <=20 S S=Sensitive;I=Indeterminate;R=Resistant 30 This sample is drawn by: PAIGE KERR LPN 31 Per NCEP ATP III Guidelines: Results lower than 40 mg/dL are suggestive of increased risk for coronary artery disease. Results > or=to 60 mg/dL are considered a negative risk factor. 32 Per NCEP ATP III Guidelines: Optimal: <100 Near optimal: 100-129 Borderline high: 130-159 High: 160-189 Very high: >189 33 Concerning GFR Guidelines: Normal function or mild renal disease, if clinically at risk: >/=60 mL/min Moderately decreased: 30-59 Severely decreased: 15-29 Renal failure: <15 Glomerular Filtration Rate (GFR) is estimated based on the MDRD equation, which assumes a steady state for creatinine as recommended by the National Kidney Disease Education Program in conjunction with the National Institutes of Health and the National Kidney Foundation. Clinical conditions in which it may be necessary to measure GFR by using clearance methods include extremes of age and body size, severe malnutrition or obesity, diseases of skeletal muscle, paraplegia or quadriplegia, vegetarian diet, rapidly changing kidney function, and calculation of the dose of potentially toxic drugs that are excreted by the kidneys. 34 Concerning GFR Guidelines for Americans: Normal function or mild renal disease, if clinically at risk: >/=60 mL/min Moderately decreased: 30-59 Severely decreased: 15-29 Renal failure: <15 Procedures Date Code Description Status 06/02/2018 [id number] Mammogram Completed 06/25/2012 [id number] Colonoscopy Completed 11/27/2011 08645 Electrocardiogram Complete Completed 11/27/2010 [id number] Mammogram Completed Encounters Type Date Location Provider Dx Diagnosis Office Visit 02/24/2019 Sun Zavaleta PA R19.7 Diarrhea, 3:15p unspecified N39.0 Urinary tract infection, site not specified Office Visit 02/01/2019 2:20p Judah Noe, R10.11 RIGHT upper MD quadrant pain Office Visit 01/05/2019 3:10p Judah Noe, M79.652 Pain in LEFT MD thigh R25.2 Cramp and spasm N39.0 Urinary tract infection, site not specified M32.9 Systemic lupus erythematosus, unspecified Office Visit 10/26/2018 10:50a Judah Noe, J01.00 Acute maxillary MD sinusitis, unspecified R05 Cough Office Visit 02/16/2018 2:15p Sun Zavaleta J01.00 Acute maxillary PA sinusitis, unspecified Office Visit 07/24/2016 1:00p Sun Zavaleta, N39.0 Urinary tract PA infection, site not specified Office Visit 12/19/2015 2:10p Judah Noe, R10.31 RIGHT lower MD quadrant pain R10.32 LEFT lower quadrant pain K59.00 Constipation, unspecified M32.9 Systemic lupus erythematosus, unspecified M06.89 Other specified rheumatoid arthritis, multiple sites Office Visit 09/25/2015 3:00p Marky Bah, R42 Dizziness and PA giddiness Office Visit 09/13/2015 1:15p Marky Bah, J01.90 Acute sinusitis, PA unspecified M06.9 Rheumatoid arthritis, unspecified Office Visit 07/17/2015 11:00a Sun Zavaleta, R10.2 Pelvic and PA perineal pain M54.5 Low back pain Office Visit 04/20/2015 3:00p Judah Noe, 381.01 Otitis Media MD Serous Acute Office Visit 11/03/2014 3:15p Sun Zavaleta, 461.0 Sinusitis Acute PA Maxillary Office Visit 02/08/2014 3:40p Judah Noe, 714.0 Rheumatoid MD Arthritis 719.43 Pain Joint Forearm 780.79 Malaise And Fatigue Other Office Visit 05/11/2013 2:00p Judah Noe, 053.9 Herpes Zoster W/O Complication 710.0 Lupus Erythematosus Systemic Office Visit 02/23/2013 4:00p Sun Zavaleta, 719.09 Effusion Joint PA Multiple Sites 710.0 Lupus Erythematosus Systemic Office Visit 11/06/2012 2:30p Sun Zavaleta, 599.0 UTI Urinary Tract PA Infection Site Not Spec Office Visit 09/15/2012 1:30p Sun Zavaleta, 724.2 Lumbago PA Office Visit 09/10/2012 3:30p Sun Zavaleta, 595.0 Cystitis Acute PA Office Visit 11/27/2011 11:00a Bruno Castro Judah R, V70.0 Exam ( Adult) General Medical Routine AT Health Care Facility 710.0 Lupus Erythematosus Systemic 627.9 Menopausal & Postmenopausal Disorder Unspec Plan of Treatment Future Appointment(s):03/15/2019 3:00 pm - Sun Tavarez PA at [facility]02/24/2019 - Sun Tavarez, PAR19.7 Diarrhea, unspecifiedComments:diarrhea has resolved but still not feeling wellfatigue, decreased appetitewill obtain labs? viral gastroenteritis vs food poiseningdiscussed bland diet and clear fluids until sx [id number] Urinary tract infection, site not specifiedComments:will recheck urine today UA clear and will repeat culture
[2019-03-08 18:49] VITALS: BP 132/55
--- NOTE | 2019-03-08 19:40 | UC ---
Hand/Wrist HPI - HPI Summary HPI Summary: 59-year-old female presents with complaints of pain to her distal left ring finger. States on March 03, 2019 she was holding a dog by the D-ring of its harness, the dog lunged, and caused a hyperextension injury to her finger. Pain with flexion and extension. Denies numbness or tingling. - History Of Current Complaint Chief Complaint: UCUpperExtremity Stated Complaint: LT RING FINGER INJURY Time Seen by Provider: 03/08/19 18:53 Hx Obtained From: Patient Pain Intensity: 2 - Allergies/Home Medications Allergies/Adverse Reactions: Allergies Allergy/AdvReac Type Severity Reaction Status Date / Time No Known Allergies Allergy Verified 03/08/19 18:49 PMH/Surg Hx/FS Hx/Imm Hx - Additional Past Medical History Additional PMH: RA Previously Healthy: Yes - Surgical History Surgical History: Yes Surgery Procedure, Year, and Place: Hysterectomy, right shoulder surgery. - Family History Known Family History: Positive: Non-Contributory - Social History Occupation: Employed Full-time Lives: With Family Alcohol Use: Rare Substance Use Type: None Smoking Status (MU): Former Smoker Type: Cigarettes Length of Time of Smoking/Using Tobacco: approx 10 yrs When Did the Patient Quit Smoking/Using Tobacco: 1997 Review of Systems All Other Systems Reviewed And Are Negative: Yes Constitutional: Positive: Negative Skin: Positive: Negative Respiratory: Positive: Negative Cardiovascular: Positive: Negative Gastrointestinal: Positive: Negative Genitourinary: Positive: Negative Motor: Negative: Weakness Neurovascular: Negative: Decreased Sensation Musculoskeletal: Positive: Other: - See HPI Neurological: Positive: Negative Is Patient Immunocompromised?: No Physical Exam - Summary Physical Exam Summary: GENERAL APPEARANCE: Well developed, well nourished, alert and cooperative, and appears to be in no acute distress. CARDIAC: Normal S1 and S2. No S3, S4 or murmurs. Rhythm is regular. There is no peripheral edema, cyanosis or pallor. Extremities are warm and well perfused. Capillary refill is less than 2 seconds. Peripheral pulses intact. LUNGS: Clear to auscultation without rales, rhonchi, wheezing or diminished breath sounds. ABDOMEN: Positive bowel sounds. Soft, nondistended, nontender. No guarding or rebound. No masses or hepatosplenomegally. MUSKULOSKELETAL: Normal muscular development. Normal gait. EXTREMITIES: Tenderness over the mid distal phalanx of the left ring finger without erythema, ecchymosis, edema, or gross deformity. Circulation and sensation intact. SKIN: Skin normal color, texture and turgor with no lesions or eruptions. Triage Information Reviewed: Yes Vital Signs: Initial Vital Signs Temp 98.4 F 03/08/19 18:44 Pulse 62 03/08/19 18:44 Resp 16 03/08/19 18:44 BP 132/55 03/08/19 18:44 Pulse Ox 100 03/08/19 18:44 Vital Signs Reviewed: Yes Diagnostics - Radiology No standard instances Radiology Interpretation Completed By: ED Physician - Non-displaced fracture of the distal phalanx of the left ring finger. Hand/Wrist Course/Dx - Course Course Of Treatment: 59-year-old female presents with complaints of pain to her distal left ring finger. States on March 03, 2019 she was holding a dog by the D-ring of its harness, the dog lunged, and caused a hyperextension injury to her finger. Pain with flexion and extension. Denies numbness or tingling. Afebrile. VSS. Exam revealed tenderness over the mid distal phalanx of the left ring finger without erythema, ecchymosis, edema, or gross deformity. X-ray showed a non- displaced fracture of the distal phalanx of the left ring finger. Patient was placed in a splint by the RN. Recommending conservative treatment with OTC analgesics and RICE. She is to follow up with orthopedic surgery in 5-7 days for evaluation and treatment. Anticipatory guidance and warning symptoms reviewed with the patient. Verbalizes understanding and agrees with POC. - Differential Dx/Diagnosis Differential Diagnosis/HQI/PQRI: Contusion, Fracture, Sprain Provider Diagnosis: Nondisplaced fracture of distal phalanx of finger of left hand Discharge - Sign-Out/Discharge Documenting (check all that apply): Patient Departure All imaging exams completed and their final reports reviewed: No - Discharge Plan Condition: Stable Disposition: HOME Patient Education Materials: Finger Fracture (ED) Referrals: Matthew URIBE,Judah Ramires [Primary Care Provider] - Eran Stephenson MD [Medical Doctor] - Additional Instructions: The x-ray performed in the clinic today showed a non-displaced fracture of the distal phalanx of the left ring finger. Wear the splint that was applied in the clinic today. You may remove to shower but should wear at all other times. Rest the hand as much as possible. Apply ice to the affected area for 15-20 minutes at least 4 times a day to help with the pain and swelling. Elevate the hand to help reduce swelling. Take acetaminophen (Tylenol) or ibuprofen (Advil, Motrin) according to directions as needed for pain. Follow up with orthopedic surgery in 5-7 days for evaluation and treatment. Call for appointment. Seek immediate medical attention if you have severe pain not managed with pain medication, develop numbness or tingling in the finger, or have any worsening of symptoms. - Billing Disposition and Condition Condition: STABLE Disposition: Home
--- NOTE | 2019-03-09 08:09 | UC ---
- Progress Note Progress Note: xray report: TECHNIQUE: 3 views of the left ring finger were obtained. FINDINGS: There is soft tissue swelling adjacent to the middle and distal phalanges. There is a transverse nondisplaced fracture through the proximal diaphysis of the distal phalanx. No other fractures are seen. Joint spaces appear maintained. IMPRESSION: TRANSVERSE NONDISPLACED FRACTURE OF THE DISTAL PHALANX. Course/Dx - Diagnoses Provider Diagnoses: Nondisplaced fracture of distal phalanx of finger of left hand Discharge - Sign-Out/Discharge Documenting (check all that apply): Patient Departure All imaging exams completed and their final reports reviewed: Yes - Discharge Plan Condition: Stable Disposition: HOME Patient Education Materials: Finger Fracture (ED) Referrals: Eran Stephenson MD [Medical Doctor] - Matthew URIBE,Judah Ramires [Primary Care Provider] - Additional Instructions: The x-ray performed in the clinic today showed a non-displaced fracture of the distal phalanx of the left ring finger. Wear the splint that was applied in the clinic today. You may remove to shower but should wear at all other times. Rest the hand as much as possible. Apply ice to the affected area for 15-20 minutes at least 4 times a day to help with the pain and swelling. Elevate the hand to help reduce swelling. Take acetaminophen (Tylenol) or ibuprofen (Advil, Motrin) according to directions as needed for pain. Follow up with orthopedic surgery in 5-7 days for evaluation and treatment. Call for appointment. Seek immediate medical attention if you have severe pain not managed with pain medication, develop numbness or tingling in the finger, or have any worsening of symptoms. - Billing Disposition and Condition Condition: STABLE Disposition: Home
== END 2019-03-08 19:39 | disposition home or self-care (01) ==
LOC: UCCORT 18:20
DX: S62.665A Nondisplaced fracture of distal phalanx of left ring finger, initial encounter for closed fracture (principal); W23.0XXA Caught, crushed, jammed, or pinched between moving objects, initial encounter; Y93.89 Activity, other specified; Y92.9 Unspecified place or not applicable
CPT/HCPCS: 73140; 99211; G0463

== ENCOUNTER 2019-08-29 11:08 | Emergency (ER) | payer OTHER ==
[2019-08-29 11:32] VITALS: BP 115/64
--- NOTE | 2019-08-29 11:47 | UC ---
Abdominal Pain Female HPI - HPI Summary HPI Summary: 1 week of worsening ruq pain---denies n/v/d or fever - History of Current Complaint Chief Complaint: UCGeneralIllness Stated Complaint: R SIDE PAIN UNDER RIB Time Seen by Provider: 08/29/19 11:40 Hx Obtained From: Patient ?: No Onset/Duration: Gradual Onset, Lasting Weeks - 1, Still Present Timing: Constant Pain Intensity: 7 Pain Scale Used: 0-10 Numeric Location: Discrete At: RUQ Radiates: Yes Radiates to: Back Character: Colicy, Cramping Aggravating Factor(s): Nothing Alleviating Factor(s): Nothing Associated Signs and Symptoms: Positive: Decreased Appetite Allergies/Adverse Reactions: Allergies Allergy/AdvReac Type Severity Reaction Status Date / Time No Known Allergies Allergy Verified 08/29/19 11:23 Home Medications: Home Medications Hydroxychloroquine TAB* [Plaquenil TAB*] 200 mg PO DAILY 08/29/19 [History Confirmed 08/29/19] Leflunomide 10 mg PO SEE INSTRUCTIONS 08/29/19 [History Confirmed 08/29/19] Omeprazole 20 mg PO DAILY 08/29/19 [History Confirmed 08/29/19] PMH/Surg Hx/FS Hx/Imm Hx Previously Healthy: No - lupus, abdnormal LFT GI/ History: Gastroesophageal Reflux - Surgical History Surgical History: Yes Surgery Procedure, Year, and Place: Hysterectomy, right shoulder surgery. - Family History Known Family History: Positive: None, Non-Contributory - Social History Occupation: Employed Full-time Lives: With Family Alcohol Use: Rare Substance Use Type: None Smoking Status (MU): Former Smoker Type: Cigarettes Length of Time of Smoking/Using Tobacco: approx 10 yrs When Did the Patient Quit Smoking/Using Tobacco: 1997 Review of Systems All Other Systems Reviewed And Are Negative: Yes Constitutional: Positive: Negative Skin: Positive: Negative Eyes: Positive: Negative ENT: Positive: Negative Respiratory: Positive: Negative Cardiovascular: Positive: Negative Gastrointestinal: Positive: Abdominal Pain Genitourinary: Positive: Negative Motor: Positive: Negative Neurovascular: Positive: Negative Musculoskeletal: Positive: Negative Neurological: Positive: Negative Psychological: Positive: Negative Is Patient Immunocompromised?: No Physical Exam Triage Information Reviewed: Yes Appearance: Well-Appearing, No Pain Distress, Well-Nourished Vital Signs: Initial Vital Signs Temp 98 F 08/29/19 11:27 Pulse 63 08/29/19 11:27 Resp 16 08/29/19 11:27 BP 115/64 08/29/19 11:27 Pulse Ox 100 08/29/19 11:27 Vital Signs Reviewed: Yes Eye Exam: Normal Eyes: Positive: Conjunctiva Clear ENT Exam: Normal ENT: Positive: Normal ENT inspection, Hearing grossly normal, TMs normal. Negative: Nasal congestion, Trismus, Muffled voice, Hoarse voice Dental Exam: Normal Neck exam: Normal Neck: Positive: Supple, Nontender Respiratory Exam: Normal Respiratory: Positive: Chest non-tender, Lungs clear, Normal breath sounds, No respiratory distress, No accessory muscle use Cardiovascular Exam: Normal Cardiovascular: Positive: RRR, No Murmur, Pulses Normal, Brisk Capillary Refill Abdominal Exam: Other Abdomen Description: Positive: No Organomegaly, Soft, Other: - ruq, tariq sign. Negative: CVA Tenderness (R), CVA Tenderness (L) Bowel Sounds: Positive: Present Musculoskeletal Exam: Normal Musculoskeletal: Positive: Strength Intact, ROM Intact, No Edema Neurological Exam: Normal Neurological: Positive: Alert, Muscle Tone Normal Psychological Exam: Normal Skin Exam: Normal Abd Pain Female Course/Dx - Course Course Of Treatment: npo, to ed in [place] (at pt request) for further assessment of RUQ pain - Differential Dx/Diagnosis Provider Diagnosis: RUQ abdominal pain Discharge ED - Sign-Out/Discharge Documenting (check all that apply): Patient Departure All imaging exams completed and their final reports reviewed: No Studies - Discharge Plan Condition: Fair Disposition: HOME-RECOMMEND TO ED Patient Education Materials: Acute Abdominal Pain (DC) Referrals: Matthew URIBE,Judah Ramires [Primary Care Provider] - Additional Instructions: ++++++Nothing to eat or drink++++++ +++++++++++++++++++To Ed for comprehensive evaluation of right upper quadrant pain+++++++++++++++++++ - Billing Disposition and Condition Condition: FAIR Disposition: Home-Recommend to ED
== END 2019-08-29 12:00 | disposition home health service (06) ==
LOC: UCCORT 11:08
DX: R10.11 Right upper quadrant pain (principal); K21.9 Gastro-esophageal reflux disease without esophagitis; Z87.891 Personal history of nicotine dependence; Z79.899 Other long term (current) drug therapy
CPT/HCPCS: 99212; G0463